=== PATIENT | female | born 1980 ===

== ENCOUNTER 2019-02-18 10:13 | Emergency (ER) | payer OTHER ==
--- NOTE | 2019-02-18 11:24 | UC ---
Skin Complaint HPI - HPI Summary HPI Summary: She noticed a rash on her left calf yesterday. It is not particular painful or itchy. - History of Current Complaint Chief Complaint: UCSkin Time Seen by Provider: 02/18/19 11:16 Stated Complaint: BUG BITE Hx Obtained From: Patient Hx Last Menstrual Period: [id number] ?: No Onset/Duration: Gradual Onset Skin Exposure Onset/Duration: Days Ago Onset Severity: Mild Current Severity: Mild Pain Intensity: 0 Location: Other - Left calf Aggravating Factor(s): Nothing Alleviating Factor(s): Nothing - Allergy/Home Medications Allergies/Adverse Reactions: Allergies Allergy/AdvReac Type Severity Reaction Status Date / Time No Known Allergies Allergy Verified 02/18/19 10:24 Home Medications: Home Medications Norgestimate-Eth Estradiol(NF) [Ortho Tri-Cyclen (NF)] 1 tab PO DAILY 02/18/19 [ History Confirmed 02/18/19] PMH/Surg Hx/FS Hx/Imm Hx Previously Healthy: Yes - Surgical History Surgical History: None - Social History Alcohol Use: Occasionally Substance Use Type: None Smoking Status (MU): Never Smoked Tobacco Review of Systems All Other Systems Reviewed And Are Negative: Yes Constitutional: Positive: Negative Skin: Positive: Rash Physical Exam - Summary Physical Exam Summary: She is nontoxic in appearance with stable vital signs. Triage Information Reviewed: Yes Appearance: Well-Appearing, No Pain Distress Vital Signs: Initial Vital Signs Temp 97.8 F 02/18/19 10:21 Pulse 67 02/18/19 10:21 Resp 18 02/18/19 10:21 BP 112/62 02/18/19 10:21 Pulse Ox 100 02/18/19 10:21 Vital Signs Reviewed: Yes ENT Exam: Normal Respiratory Exam: Normal Musculoskeletal Exam: Normal Neurological Exam: Normal Skin: Positive: Rashes - There is about 1/2 cm of dark erythema surrounded by 3 cm of mild erythema and then about a centimeter of extra pale area. Course/Dx - Course Course Of Treatment: This certainly could be an atypical erythema migrans and I'm going to treat her for Lyme. She is very early in the process and a Lyme titer is probably negative at this point. - Diagnoses Provider Diagnosis: Lyme disease Discharge - Sign-Out/Discharge Documenting (check all that apply): Patient Departure All imaging exams completed and their final reports reviewed: No Studies - Discharge Plan Condition: Stable Disposition: HOME Patient Education Materials: Lyme Disease (ED) Referrals: No Primary Care Phys,NOPCP [Primary Care Provider] - [facility] [Outside] - Billing Disposition and Condition Condition: STABLE Disposition: Home
== END 2019-02-18 11:37 | disposition home or self-care (01) ==
LOC: UCEAST 10:13
DX: A69.20 Lyme disease, unspecified (principal)
CPT/HCPCS: 99202; G0463